=== PATIENT | female | born 1975 | race African-American/Black ===

== ENCOUNTER 2016-06-05 13:32 | Emergency (ER) | payer SELFPAY ==
[~2016-06-05] VITALS: Ht 162.6 cm; Wt 81.6 kg
[~2016-06-05 13:32] MED LIST: HYDR-2666 PO; OXYC-323 PO
[2016-06-05 14:15] VITALS: BP 121/80
[2016-06-05] MEDS ORDERED: HYDROMORPHONE 2 MG/ML VIAL. IV ONE ×2 (15:15→16:15)
[2016-06-05] MEDS ORDERED: IV NORMAL SALINE 1000ML BAG 1,000 ML IV ONE (15:15)
[2016-06-05] MEDS ORDERED: ONDANSETRON PF 4 MG/2 ML VIAL. IV ONE ×2 (15:15→19:00)
--- NOTE | 2016-06-05 15:16 | ED.ADGEN ---
Past Medical History Past Medical History: Other Additional Past Medical Histor: UTERINE FIBROID Past Surgical History: Appendectomy, , Hysterectomy, Other Additional Past Surgical Histo: UTERINE ABLATION. Alcohol Use: Occasionally Drug Use: None Adult General Chief Complaint Chief Complaint: ABDOMINAL PAIN HPI HPI Patient is a 41 year old female presents emergency department complaining of right sided flank pain as well as nausea and vomiting for last 3 hours. Patient states that the pain comes and goes in waves. She has had no prehospital intervention. She denies any history of previous kidney stones. Denies any dysuria, vaginal bleeding or discharge. Denies any fever or chills. Review of Systems Review of Systems Constitutional: Denies fever or chills. [] Eyes: Denies change in visual acuity. [] HENT: Denies nasal congestion or sore throat. [] Respiratory: Denies cough or shortness of breath. [] Cardiovascular: Denies chest pain or edema. [] GI: Denies abdominal pain, nausea, vomiting, bloody stools or diarrhea. [] : Denies dysuria. [] Musculoskeletal: Denies back pain or joint pain. [] Integument: Denies rash. [] Neurologic: Denies headache, focal weakness or sensory changes. [] Endocrine: Denies polyuria or polydipsia. [] Lymphatic: Denies swollen glands. [] Psychiatric: Denies depression or anxiety. [] Current Medications Current Medications Current Medications Medications (Trade) Dose Ordered Sig/Freddy Start Time Stop Time Status Last Admin Dose Admin Fentanyl Citrate (Fentanyl 2ml Vial) 75 mcg 1X ONCE 06/05/16 19:00 06/05/16 19:01 DC 06/05/16 18:51 75 MCG Hydromorphone HCl (Dilaudid) 1 mg 1X ONCE 06/05/16 16:15 06/05/16 16:16 DC 06/05/16 16:19 1 MG Ketorolac Tromethamine (Toradol) 15 mg 1X ONCE 06/05/16 19:30 06/05/16 19:30 DC 06/05/16 19:19 15 MG Ondansetron HCl (Zofran) 4 mg 1X ONCE 06/05/16 19:00 06/05/16 19:01 DC 06/05/16 18:52 4 MG Sodium Chloride (Iv Sodium Chloride 0.9% 1000ml Bag) 1,000 ml @ 1,000 mls/hr 1X ONCE 06/05/16 15:15 06/05/16 16:14 DC 06/05/16 15:31 1,000 MLS/HR Allergies Allergies Allergies Coded Allergies Type Severity Reaction Last Updated Verified Sulfa (Sulfonamide Antibiotics) Allergy Intermediate 10/02/15 Yes Physical Exam Physical Exam Constitutional: Well developed, well nourished, mild to moderate acute distress , non-toxic appearance. [] HENT: Normocephalic, atraumatic, bilateral external ears normal, oropharynx moist, no oral exudates, nose normal. [] Eyes: PERRLA, EOMI, conjunctiva normal, no discharge. [] Neck: Normal range of motion, no tenderness, supple, no stridor. [] Cardiovascular:Heart rate regular rhythm, no murmur [] Lungs & Thorax: Bilateral breath sounds clear to auscultation [] Abdomen: Bowel sounds normal, soft, no tenderness, no masses, no pulsatile masses. [] Skin: Warm, dry, no erythema, no rash. [] Back: No tenderness, right CVA tenderness. [] Extremities: No tenderness, no cyanosis, no clubbing, ROM intact, no edema. [] Neurologic: Alert and oriented X 3, normal motor function, normal sensory function, no focal deficits noted. [] Psychologic: Affect normal, judgement normal, mood normal. [] Current Patient Data Vital Signs Vital Signs Date Time Temp Pulse Resp B/P Pulse Ox O2 Delivery O2 Flow Rate FiO2 06/05/16 18:51 Room Air 06/05/16 14:15 96.8 60 24 121/80 100 96.8 Lab Values Laboratory Tests Test 06/05/16 15:07 06/05/16 16:15 White Blood Count 10.0x10^3/uL (4.0-11.0) Red Blood Count 4.07x10^6/uL (3.50-5.40) Hemoglobin 13.2g/dL (12.0-15.5) Hematocrit 40.0% (36.0-47.0) Mean Corpuscular Volume 98fL (79-100) Mean Corpuscular Hemoglobin 33pg (25-35) Mean Corpuscular Hemoglobin Concent 33g/dL (31-37) Red Cell Distribution Width 12.7% (11.5-14.5) Platelet Count 228x10^3/uL (140-400) Neutrophils (%) (Auto) 76% (31-73) H Lymphocytes (%) (Auto) 17% (24-48) L Monocytes (%) (Auto) 6% (0-9) Eosinophils (%) (Auto) 0% (0-3) Basophils (%) (Auto) 1% (0-3) Neutrophils # (Auto) 7.6x10^3uL (1.8-7.7) Lymphocytes # (Auto) 1.7x10^3/uL (1.0-4.8) Monocytes # (Auto) 0.6x10^3/uL (0.0-1.1) Eosinophils # (Auto) 0.0x10^3/uL (0.0-0.7) Basophils # (Auto) 0.1x10^3/uL (0.0-0.2) Sodium Level 139mmol/L (136-145) Potassium Level 4.0mmol/L (3.5-5.1) Chloride Level 103mmol/L (98-107) Carbon Dioxide Level 30mmol/L (21-32) Anion Gap 6 (6-14) Blood Urea Nitrogen 13mg/dL (7-20) Creatinine 1.0mg/dL (0.6-1.0) Estimated GFR (Cockcroft-Gault) 73.2 Glucose Level 131mg/dL (70-99) H Calcium Level 9.4mg/dL (8.5-10.1) Total Bilirubin 0.6mg/dL (0.2-1.0) Direct Bilirubin 0.1mg/dL (0.0-0.2) Aspartate Amino Transferase (AST) 15U/L (15-37) Alanine Aminotransferase (ALT) 23U/L (14-59) Alkaline Phosphatase 59U/L (46-116) Total Protein 8.3g/dL (6.4-8.2) H Albumin 3.6g/dL (3.4-5.0) Urine Collection Type Unknown Urine Color Yellow Urine Clarity Cloudy Urine pH 8.5 Urine Specific [place] >=1.030 Urine Protein 100mg/dL (NEG-TRACE) Urine Glucose (UA) Negativemg/dL (NEG) Urine Ketones (Stick) Negativemg/dL (NEG) Urine Blood Negative (NEG) Urine Nitrite Negative (NEG) Urine Bilirubin Negative (NEG) Urine Urobilinogen Dipstick 0.2mg/dL (0.2 mg/dL) Urine Leukocyte Esterase Negative (NEG) Urine RBC 0/HPF (0-2) Urine WBC Occ/HPF (0-4) Urine Squamous Epithelial Cells Mod/LPF Urine Bacteria Few/HPF (0-FEW) Urine Mucus Marked/LPF Laboratory Tests 06/05/16 15:07 Laboratory Tests 06/05/16 15:07 EKG EKG [] Radiology/Procedures Radiology/Procedures PROCEDURE Pelvic ultrasound including transvaginal scanning 06/05/2016. HISTORY CT reportedly showed right-sided mass. TECHNIQUE Transabdominal and transvaginal scanning were performed. COMPARISON FINDINGS Initial scanning was performed through the abdominal wall. There was poor bladder filling. Fluid filled bowel loops are seen. The uterus and ovaries are not well seen. There is no obvious free fluid. Transvaginal scanning was performed to better visualize the pelvic structures. The uterus is not seen, consistent with surgical history of hysterectomy. The left ovary also was previously removed. The right ovary is relatively prominent, measuring 5.0 x 4.6 x 3.8 centimeters. There is a 2.9 centimeters cyst internally and an additional hypoechoic region without internal blood flow measuring about 2.6 centimeters. This could represent a hemorrhagic cyst. Some blood flow is seen within the right ovary, although this appears to be only minimal flow. There is only a trace of free fluid in the pelvis. IMPRESSION Changes of hysterectomy and left oophorectomy. The right ovary contains a simple appearing cystic area and possibly a hemorrhagic cyst. Blood flow was present in the right ovary, although may be reduced from normal. However, lack of edema in the ovary and relatively small volume of adjacent free fluid would seem to make torsion less likely. Electronically signed by: Elvira Benoit (Jun 05, 2016 18:39:20) DICTATED and SIGNED BY: ELVIRA BENOIT Jr, MD DATE: 06/05/16 9702 CC: MAGO SKINNER; ETTA HARE MD ~CT study of the abdomen and pelvis without contrast Clinical indications: Generalized abdominal pain. Nausea and vomiting for 2 hours. History of appendectomy and hysterectomy. Technique: Noncontrast helical CT scanning of the abdomen and pelvis was performed. Without contrast, the sensitivity to detect organ pathology and GI tract pathology is decreased. PQRS Compliance Statement: One or more of the following individualized dose reduction techniques were utilized for this examination: 1. Automated exposure control 2. Adjustment of the mA and/or kV according to patient size 3. Use of iterative reconstruction technique Comparison: September 05, 2015. Findings: The liver and spleen and pancreas are homogeneous in appearance on this noncontrast study. The gallbladder is normal and no extra hepatic biliary ductal dilatation is seen. No adrenal mass is evident. No urinary tract stone or hydronephrosis or hydroureter is evident. No renal mass is seen on either side on this noncontrast study. No focal aneurysmal dilatation of the abdominal aorta is seen. No enlarged abdominal lymphadenopathy is evident. Uterus is surgically absent. There is a round mass within the right lower quadrant of the abdomen measuring 4.9 cm. Mild fecal retention is seen throughout the colon and rectosigmoid region. No obstructive bowel pattern is seen. No free air or free fluid or inflammatory change is seen. No focal aneurysmal dilatation of the abdominal aorta is seen. No lung base consolidation is seen. No osteolytic process is seen. IMPRESSION: Without IV contrast and GI contrast material, the study is somewhat limited. However, there is a 4.9 cm round mass within the right lower quadrant of the abdomen. This could represent an enlarged right ovary. Other considerations would include mass of the small or large bowel or enlarged pelvic lymphadenopathy. Correlation with surgical history with regard to salpingo-oophorectomy given hysterectomy is recommended. If the ovaries are still present based on surgical history, then transabdominal and transvaginal pelvic sonography may be helpful for further evaluation. DICTATED and SIGNED BY: STEPHEN MURRELL MD DATE: 06/05/16 9446 CC: MAGO SKINNER; ETTA HARE MD ~ [] Course & Med Decision Making Course & Med Decision Making Pertinent Labs and Imaging studies reviewed. (See chart for details) Patient has an ovarian cyst. She has had these previously on the left requiring a oophorectomy. Today of given her IV fluids, Zofran, and pain medications in the emergency department. She is being sent home with a prescription for Eros and Zofran as well as instructions follow-up with her [employer] on Tuesday. [] Dragon Disclaimer Dragon Disclaimer This electronic medical record was generated, in whole or in part, using a voice recognition dictation system. ETTA HARE MD Jun 05, 2016 15:16
[2016-06-05 15:23] LABS: BASO # 0.1 x10^3/uL (0.0-0.2); BASO % 1 % (0-3); EOS % 0 % (0-3); HEMOGLOBIN 13.2 g/dL (12.0-15.5); LYMPH # 1.7 x10^3/uL (1.0-4.8); LYMPH % 17 % (24-48); MEAN CORPUSCULAR HEMOGLOBIN 33 pg (25-35); MEAN CORPUSCULAR HGB CONC 33 g/dL (31-37); MEAN CORPUSCULAR VOLUME 98 fL (79-100); MONO % 6 % (0-9); NEUT % 76 % (31-73); PLATELET COUNT 228 x10^3/uL (140-400); RED BLOOD COUNT 4.07 x10^6/uL (3.50-5.40); RED CELL DISTRIBUTION WIDTH 12.7 % (11.5-14.5)
[2016-06-05 15:39] LABS: CALCIUM 9.4 mg/dL (8.5-10.1); GFR 73.2
[2016-06-05 15:45] LABS: ALBUMIN 3.6 g/dL (3.4-5.0); DIRECT BILIRUBIN 0.1 mg/dL (0.0-0.2); TOTAL BILIRUBIN 0.6 mg/dL (0.2-1.0); TOTAL PROTEIN 8.3 g/dL (6.4-8.2)
[2016-06-05 16:24] LABS: BILIRUBIN,URINE NEGATIVE (NEG); GLUCOSE,URINE NEGATIVE (NEG); NITRITE,URINE NEGATIVE (NEG); PH,URINE 8.5; PROTEIN,URINE 100 mg/dL (NEG-TRACE); UROBILINOGEN,URINE 0.2 mg/dL (0.2 mg/dL)
[2016-06-05 16:29] LABS: BACTERIA,URINE FEW /HPF (0-FEW); RBC,URINE 0 /HPF (0-2); SQUAMOUS EPITHELIAL CELL,UR MOD /LPF; WBC,URINE OCC /HPF (0-4)
--- NOTE | 2016-06-05 16:47 | RAD ---
CT study of the abdomen and pelvis without contrast Clinical indications: Generalized abdominal pain. Nausea and vomiting for 2 hours. History of appendectomy and hysterectomy. Technique: Noncontrast helical CT scanning of the abdomen and pelvis was performed. Without contrast, the sensitivity to detect organ pathology and GI tract pathology is decreased. PQRS Compliance Statement: One or more of the following individualized dose reduction techniques were utilized for this examination: 1. Automated exposure control 2. Adjustment of the mA and/or kV according to patient size 3. Use of iterative reconstruction technique Comparison: September 05, 2015. Findings: The liver and spleen and pancreas are homogeneous in appearance on this noncontrast study. The gallbladder is normal and no extra hepatic biliary ductal dilatation is seen. No adrenal mass is evident. No urinary tract stone or hydronephrosis or hydroureter is evident. No renal mass is seen on either side on this noncontrast study. No focal aneurysmal dilatation of the abdominal aorta is seen. No enlarged abdominal lymphadenopathy is evident. Uterus is surgically absent. There is a round mass within the right lower quadrant of the abdomen measuring 4.9 cm. Mild fecal retention is seen throughout the colon and rectosigmoid region. No obstructive bowel pattern is seen. No free air or free fluid or inflammatory change is seen. No focal aneurysmal dilatation of the abdominal aorta is seen. No lung base consolidation is seen. No osteolytic process is seen. IMPRESSION: Without IV contrast and GI contrast material, the study is somewhat limited. However, there is a 4.9 cm round mass within the right lower quadrant of the abdomen. This could represent an enlarged right ovary. Other considerations would include mass of the small or large bowel or enlarged pelvic lymphadenopathy. Correlation with surgical history with regard to salpingo-oophorectomy given hysterectomy is recommended. If the ovaries are still present based on surgical history, then transabdominal and transvaginal pelvic sonography may be helpful for further evaluation.
--- NOTE | 2016-06-05 18:40 | RAD ---
PROCEDURE Pelvic ultrasound including transvaginal scanning 06/05/2016. HISTORY CT reportedly showed right-sided mass. TECHNIQUE Transabdominal and transvaginal scanning were performed. COMPARISON FINDINGS Initial scanning was performed through the abdominal wall. There was poor bladder filling. Fluid filled bowel loops are seen. The uterus and ovaries are not well seen. There is no obvious free fluid. Transvaginal scanning was performed to better visualize the pelvic structures. The uterus is not seen, consistent with surgical history of hysterectomy. The left ovary also was previously removed. The right ovary is relatively prominent, measuring 5.0 x 4.6 x 3.8 centimeters. There is a 2.9 centimeters cyst internally and an additional hypoechoic region without internal blood flow measuring about 2.6 centimeters. This could represent a hemorrhagic cyst. Some blood flow is seen within the right ovary, although this appears to be only minimal flow. There is only a trace of free fluid in the pelvis. IMPRESSION Changes of hysterectomy and left oophorectomy. The right ovary contains a simple appearing cystic area and possibly a hemorrhagic cyst. Blood flow was present in the right ovary, although may be reduced from normal. However, lack of edema in the ovary and relatively small volume of adjacent free fluid would seem to make torsion less likely. Electronically signed by: Flakito Benoit (Jun 05, 2016 18:39:20)
[2016-06-05] MEDS ORDERED: FENTANYL PF 100 MCG/2 ML VIAL. IV ONE (19:00)
[2016-06-05] MEDS ORDERED: HYDR-971 PO (19:11)
[2016-06-05] MEDS ORDERED: ONDA4TAB10 SL (19:11)
[2016-06-05] MEDS ORDERED: KETOROLAC 15 MG/ML VIAL. IV ONE (19:30)
== END 2016-06-05 19:27 | disposition home or self-care (01) ==
LOC: ER 13:32
DX: N83.201 Unspecified ovarian cyst, right side (principal); Z90.710 Acquired absence of both cervix and uterus; Z88.2 Allergy status to sulfonamides; Z90.49 Acquired absence of other specified parts of digestive tract; Z98.890 Other specified postprocedural states
CPT/HCPCS: 36415; 74176; 76830; 76856; 80048; 80076; 81001; 85027; 96361; 96374; 96375; 96376; 99285; J1170; J1885; J2405; J3010; J7030